=== PATIENT | female | born 1985 | race Caucasian/White ===

== ENCOUNTER 2017-11-06 13:19 | Emergency (ER) | payer OTHER ==
[2017-11-06] MEDS ORDERED: IBUPROFEN 800 MG TAB PO ONE ×2 (13:38→13:40)
[2017-11-06] MEDS ORDERED: LET GEL TOPICAL 1 EA SYR TP ONE ×2 (13:39→13:40)
--- NOTE | 2017-11-06 13:39 | EDPHY ---
H & P Time Seen by Provider: 11/06/17 13:30 HPI/ROS: CHIEF COMPLAINT: Boa constricter bite History by patient HISTORY OF PRESENT ILLNESS: 31-year-old woman presents complaining of broken stricture bite to her right index and middle finger which occurred while she was feeding her snake. This headache is large, 10 ft long. This has never happened before. She was able to pull her hand from its mouth. She complains of severe pain in her fingers. She has not taken anything for this. It happened just prior to arrival. Her last tetanus is unknown. REVIEW OF SYSTEMS: As in HPI, and all other systems reviewed and are negative Smoking Status: Never smoked Physical Exam: General Appearance: Alert and no distress. Head: Normocephalic, atraumatic Eyes: Pupils equal and round no injection. Extraocular movements are intact. Musculoskeletal: Neck is supple and nontender. Extremities: Right distal index and ring finger with mild swelling, + ecchymoses and multiple puncture wounds, distal sensation intact, distal cap refill less than 3 sec, decreased range of motion at DIP in both fingers secondary to pain, positive tenderness to palpation over D IP of right index and right finger, full range of motion PIP of both fingers against resistance,. Skin: No rashes or lesions except as described above. [ ] Constitutional: Initial Vital Signs Temperature (C) 37.0 C 11/06/17 13:25 Heart Rate 97 11/06/17 13:25 Respiratory Rate 18 11/06/17 13:25 Blood Pressure 133/98 H 11/06/17 13:25 O2 Sat (%) 97 11/06/17 13:25 O2 Delivery Mode Room Air Allergies/Adverse Reactions: No Known Allergies Allergy (Unverified 11/06/17 13:24) Home Medications: Medication Instructions Recorded Amoxicillin/Clavulanate Pot 875 mg PO BID #14 tab 11/06/17 [Augmentin 875 MG TAB (*)] Zoloft 100mg (*) 11/06/17 traZODone 11/06/17 MDM/Departure - MDM Imaging Results: Imaging Impressions Hand X-Ray 11/06/17 13:46 Impression: Soft tissue injury of the second through fourth digits, with no fracture or radiopaque foreign body. Imaging: I viewed and interpreted images myself Procedures: Procedure: Regional anesthesia. A ring block was performed for severe finger pain after a bow constrict her bite on the right index and middle fingers. The block was performed with Marcaine 0.5% without epinephrine. The patient experienced complete pain relief. The procedure was performed by myself. Medications Given: Discontinued Medications Ibuprofen (Motrin) 800 mg PO EDNOW ONE Stop: 11/06/17 13:41 Last Admin: 11/06/17 13:41 Dose: 800 mg Tetracaine/Epinephrine/Lidocaine (Let Gel Topical) 1 ea TP EDNOW ONE Stop: 11/06/17 13:41 Last Admin: 11/06/17 13:42 Dose: 1 ea ED Course/Re-evaluation: 31-year-old woman presents with bowl constrict her bite to her right index and middle fingers. There is no evidence of neurovascular compromise. X-ray was obtained which showed no evidence of underlying fracture. Patient was given ibuprofen for pain in the wounds were treated with topical let. Patient continued to have severe pain and could not tolerate irrigation after the let therefore a finger block was performed. Patient had good pain relief after the finger block and wounds were irrigated and dressed. Patient was started on prophylactic Augmentin given ecchymoses in the location of the bites in her fingers. She was given tetanus prophylaxis. We discussed signs and symptoms of infection and return precautions. - Depart Disposition: Home, Routine, Self-Care Clinical Impression: Nonvenomous snake bite Qualifiers: Encounter type: initial encounter Qualified Code(s): W59.11XA - Bitten by nonvenomous snake, initial encounter Condition: Good Instructions: Snake Bite (ED) Additional Instructions: You were seen by Dr. Marzena Joseph today. Your x-ray showed no evidence of fracture. You may wash your hands and fingers with soap and water as normal. Keep the wounds covered with Band-Aids as needed. Take antibiotics as prescribed. Watch for signs and symptoms of infection including but not limited to fever, pus draining from the rooms, increased or spreading redness and swelling. Return for any worsening or new concerns. Stand Alone Forms: Airline Excuse Prescriptions: Amoxicillin/Clavulanate Pot [Augmentin 875 MG TAB (*)] 875 mg PO BID #14 tab Referrals: NONE *PRIMARY CARE P,. [Primary Care Provider] - As per Instructions
[2017-11-06] MEDS ORDERED: TDAP ADULT 0.5 ML INJ (BOOSTRIX) IM ONE (13:48)
[2017-11-06 13:50] VITALS: BP 133/98
== END 2017-11-06 15:15 | disposition home or self-care (01) ==
LOC: CED 13:19
PROC: 3E0T3BZ Introduction of Anesthetic Agent into Peripheral Nerves and Plexi, Percutaneous Approach (ICD-10-PCS; principal; 2017-11-06)
DX: S61.250A Open bite of right index finger without damage to nail, initial encounter (principal); S61.254A Open bite of right ring finger without damage to nail, initial encounter; Z23 Encounter for immunization; W59.11XA Bitten by nonvenomous snake, initial encounter
CPT/HCPCS: 73130-PO